=== PATIENT | male | born 1945 | race Two or more races ===

== ENCOUNTER 2023-02-13 10:07 | Emergency (ER) | payer OTHER, MEDICAID ==
[~2023-02-13] VITALS: Ht 172.7 cm; Wt 64.0 kg
[2023-02-13 11:03] LABS: CALCIUM, SERUM 10.1 mg/dL (8.5-10.1); CARBON DIOXIDE 29 mmol/L (21-32); CHLORIDE 88 mmol/L (98-107); GLUCOSE 394 mg/dL (74-106); POTASSIUM 3.9 mmol/L (3.5-5.1); SODIUM SERUM 129 mmol/L (136-145)
[2023-02-13 11:12] LABS: BASOPHILS % (AUTO) 0.5 % (0.0-2.0); EOSINOPHILS % (AUTO) 0.3 % (0.0-6.0); HEMATOCRIT 33 % (39-51); HEMOGLOBIN 11.2 g/dL (13.5-17.5); LYMPHOCYTES # (AUTO) 0.6 K/uL (0.8-4.8); LYMPHOCYTES % (AUTO) 9.8 % (20.0-44.0); MEAN CORPUSCULAR HEMOGLOBIN 32 PG (26.0-33.0); MEAN CORPUSCULAR HGB CONC 34 g/dl (31.0-36.0); MEAN CORPUSCULAR VOLUME 96 fL (80-96); MONOCYTES # (AUTO) 1.2 K/uL (0.1-1.30); MONOCYTES % (AUTO) 19.2 % (2.0-12.0); NEUTROPHILS # (AUTO) 4.3 K/uL (1.8-8.9); NEUTROPHILS % (AUTO) 70.2 % (43.0-81.0); PLATELET COUNT (AUTO) 299 K/uL (150-450); RED BLOOD CELL COUNT(AUTO) 3.46 MIL/uL (4.5-6.0); RED CELL DISTRIBUTION WIDTH 15.9 % (11.5-15.0); WHITE BLOOD COUNT (AUTO) 6.1 K/uL (4.3-11.0)
[2023-02-13 11:13] LABS: CREATININE 9.8 mg/dL (0.6-1.3); UREA NITROGEN, BLOOD 109 mg/dL (7-18)
[2023-02-13 15:09] LABS: APPEARANCE,URINE TURBID (CLEAR); BILIRUBIN,URINE NEGATIVE (NEGATIVE); BLOOD, URINE 3+ Ery/uL (NEGATIVE); COLOR,URINE YELLOW (YELLOW); KETONES,URINE NEGATIVE (NEGATIVE); LEUKOCYTE ESTERASE ,URINE 3+ (NEGATIVE); NITRITE, URINE NEGATIVE (NEGATIVE); PH,URINE 5.5 (5.0-8.0); PROTEIN,URINE 3+ mg/dl (NEGATIVE); UGLUCOSE NEGATIVE (NEGATIVE); UROBILINOGEN,URINE 0.2 EU/dL (0.2)
[2023-02-13] MEDS ORDERED: CEPH500C2 PO (15:29)
[2023-02-13] MEDS ORDERED: CEFTRIAXONE 1GM BAG (ER ONLY) 1 GM/50 ML PIGGYBACK IV ONE (15:30)
[2023-02-13] MEDS ORDERED: LIDOCAINE /MPF 1% VIAL 5 ML VIAL ONE (15:43)
[2023-02-13] MEDS ORDERED: CEFTRIAXONE 1 G VIAL ONE (15:46)
[2023-02-13 16:44] LABS: WBC,URINE TOO NUMEROUS TO COUN /HPF (0-3)
[2023-02-13 16:45] LABS: ADD URINE CULTURE YES; BACTERIA,URINE Many /HPF (None Seen); RBC,URINE 51-80 /HPF (0-2)
[2023-02-13 16:46] LABS: SQUAMOUS EPITHELIAL CELL,UR Few /HPF (None Seen)
[2023-02-13 18:36] VITALS: BP 116/61; TEMP 98.1; O2SAT 98
[2023-02-13 23:29] LABS: SITE, VBG Other; VBG BASE EXCESS 4.7 mmol/L (-3-3); VBG COHb 0.1 %; VBG MetHb 0.6 %; VBG O2Hb 27.6 %; VBG OXYGEN SATURATION 27.8 %; VBG PCO2 57.8 mmHg (40-52); VBG PH 7.354 (7.31-7.41); VBG PO2 19.2 mmHg (30-50); VBG TOTAL HEMOGLOBIN 11.6 G/dL (13.5-18.0); VENT MODE, VBG RA 21%
== END 2023-02-13 18:40 ==
LOC: ER 10:23
DX: N39.0 Urinary tract infection, site not specified (principal); I13.2 Hypertensive heart and chronic kidney disease with heart failure and with stage 5 chronic kidney disease, or end stage renal disease; N18.6 End stage renal disease; I50.9 Heart failure, unspecified; I48.91 Unspecified atrial fibrillation; Z99.2 Dependence on renal dialysis
CPT/HCPCS: 99284; 96372; 93005; 82803 ×2; 85025; 80048; 87086; 81001; 36415; 84484 ×2; 94799; J0696; J3490

== ENCOUNTER 2023-05-18 10:11 | Emergency (ER) | payer OTHER, MEDICAID ==
[~2023-05-18] VITALS: Ht 170.2 cm; Wt 54.0 kg
[~2023-05-18 10:11] MED LIST: CEPH500C2 PO
[2023-05-18 10:49] LABS: MEAN CORPUSCULAR HEMOGLOBIN 31 PG (26.0-33.0); NEUTROPHILS # (AUTO) 2.2 K/uL (1.8-8.9)
[2023-05-18 10:53] LABS: BASOPHILS % (AUTO) 1.2 % (0.0-2.0); HEMATOCRIT 31 % (39-51); LYMPHOCYTES # (AUTO) 0.5 K/uL (0.8-4.8); LYMPHOCYTES % (AUTO) 12.6 % (20.0-44.0); MEAN CORPUSCULAR HGB CONC 33 g/dl (31.0-36.0); MEAN CORPUSCULAR VOLUME 94 fL (80-96); MONOCYTES % (AUTO) 26.1 % (2.0-12.0); NEUTROPHILS % (AUTO) 59.1 % (43.0-81.0); PLATELET COUNT (AUTO) 378 K/uL (150-450); RED BLOOD CELL COUNT(AUTO) 3.27 MIL/uL (4.5-6.0); RED CELL DISTRIBUTION WIDTH 16.9 % (11.5-15.0); WHITE BLOOD COUNT (AUTO) 3.8 K/uL (4.3-11.0)
[2023-05-18 10:57] LABS: CALCIUM, SERUM 9.7 mg/dL (8.5-10.1); CARBON DIOXIDE 29 mmol/L (21-32); CHLORIDE 94 mmol/L (98-107); GLUCOSE 263 mg/dL (74-106); POTASSIUM 3.9 mmol/L (3.5-5.1); SODIUM SERUM 133 mmol/L (136-145)
[2023-05-18 11:00] LABS: UREA NITROGEN, BLOOD 84 mg/dL (7-18)
[2023-05-18 11:01] LABS: CREATININE 8.2 mg/dL (0.6-1.3); INR 1.15 (0.91-1.10); PARTIAL THROMBOPLASTIN TIME 39.1 SEC (24.3-34.3); PROTHROMBIN TIME 11.7 SECS (9.2-11.1)
[2023-05-18 11:09] LABS: ALANINE AMINOTRANSFERASE 14 U/L (12-78); ALBUMIN 2.6 g/dL (3.4-5.0); ALKALINE PHOSPHATASE 73 U/L (46-116); ASPARTATE AMINOTRANSFERASE 10 U/L (15-37); BILIRUBIN,DIRECT 0.2 mg/dL (0.0-0.2); BILIRUBIN,TOTAL 0.6 mg/dL (0.2-1.0); NT-PRO BNP 8797 pg/mL (0-125); TOTAL PROTEIN, SERUM 7.6 g/dL (6.4-8.2)
[2023-05-18 12:12] LABS: ANISOCYTOSIS 1+; BASOPHILS % (MANUAL) 0 % (0.0-2.0); EOSINOPHILS % (MANUAL) 2 % (0-4); LYMPHOCYTES % (MANUAL) 10 % (16-48); MONOCYTES % (MANUAL) 24 % (0-11.0); NEUTROPHILS % (MANUAL) 64 (42-76); PLATELET ESTIMATE ADEQUATE
[2023-05-18] MEDS ORDERED: MIDODRINE HCL (5MG) 5 MG TABLET ONE (12:20)
[2023-05-18] MEDS: MIDODRINE HCL (5MG) 5 MG TABLET PO SCH (12:27)
[2023-05-18 15:01] VITALS: BP 100/60; TEMP 98.4; O2SAT 98
== END 2023-05-18 15:02 | disposition short-term general hospital (02) ==
LOC: ER 10:15
DX: I13.2 Hypertensive heart and chronic kidney disease with heart failure and with stage 5 chronic kidney disease, or end stage renal disease (principal); N18.6 End stage renal disease; I50.9 Heart failure, unspecified; I48.91 Unspecified atrial fibrillation; Z99.2 Dependence on renal dialysis
CPT/HCPCS: 36415; 71045-TC; 80048-TC; 80076-TC; 83880; 84484-TC; 85025-TC; 85730-TC